=== PATIENT | male | born 1980 | race Caucasian/White ===

== ENCOUNTER 2019-11-15 03:43 | Emergency (ER) | payer BC ==
[~2019-11-15] VITALS: Ht 185.4 cm; Wt 106.6 kg
[2019-11-15 03:47] VITALS: Ht 185.4 cm; Wt 106.6 kg
[2019-11-15 04:17] LABS: BASOPHIL % 0.6 % (0-2); PLATELET COUNT 157 x10^3mcL (130-400); RED CELL DISTRIBUTION WIDTH 12.4 % (11.5-14.5)
[2019-11-15 04:53] LABS: CALCIUM 8.4 mg/dL (8.5-10.1); CARBON DIOXIDE 25.3 mmol/L (21-32); CHLORIDE SERUM 101 mmol/L (98-107); CREATININE SERUM 1.2 mg/dL (0.7-1.3); GFR1 > 60 mL/min; GLUCOSE SERUM 126 mg/dL (74-106); POTASSIUM SERUM 3.6 mmol/L (3.5-5.1); SODIUM SERUM 137 mmol/L (136-145)
[2019-11-15 05:00] LABS: ALBUMIN 4.1 g/dL (3.4-5.0); ALKALINE PHOSPHATASE 61 U/L (46-116); ALT/SGPT 32 U/L (16-63); AST/SGOT 22 U/L (15-37); BILIRUBIN TOTAL 0.59 mg/dL (0.20-1.00); LIPASE 91 IU/L (73-393); TOTAL PROTEIN, SERUM 7.4 g/dL (6.4-8.2)
[2019-11-15 05:47] VITALS: BP 116/55
== END 2019-11-15 05:47 | disposition home or self-care (01) ==
LOC: ED 03:43
PROVIDERS: Emergency Medicine
DX: R07.89 Other chest pain (principal); F14.921 Cocaine use, unspecified with intoxication delirium; R00.0 Tachycardia, unspecified
CPT/HCPCS: 83880; J7030; Q0092